=== PATIENT | male | born 1945 | race Caucasian/White ===

== ENCOUNTER 2017-05-28 18:12 | Inpatient (IN) | payer OTHER ==
[2017-05-28 18:30] VITALS: BMI 20.8
[2017-05-31 13:14] VITALS: BP 138/76; PULSE 68; TEMP 97.9
== END 2017-05-31 12:11 | disposition home or self-care (01) | DRG 554 ==
LOC: JER 18:12 → JERFT 18:12 → JERBED 21:05 → J5S 23:50
PROVIDERS: ADMIT Internal Medicine; ATTEND Internal Medicine
DX: M10.9 Gout, unspecified (principal); M00.9 Pyogenic arthritis, unspecified; E11.9 Type 2 diabetes mellitus without complications; M1A.9XX1 Chronic gout, unspecified, with tophus (tophi); I10 Essential (primary) hypertension
CPT/HCPCS: 36415; 73140-TC-LT-FY; 80053; 82962; 83605; 84550; 85025; 85651; 86140; 87040; 99283-25; J1644

== ENCOUNTER 2017-08-27 12:59 | Emergency (ER) | payer OTHER ==
[2017-08-27 13:22] VITALS: BP 109/62; PULSE 70; TEMP 98.7; BMI 28.6
[2017-08-27] MEDS ORDERED: KETOROLAC TROMETHAMINE 30 MG/1 ML VIAL IM ONE (13:47)
--- NOTE | 2017-08-27 13:50 | PDOC ---
History of Present Illness - General Chief Complaint: Pain Stated Complaint: SWOLLEN LEGS Time Seen by Provider: 08/27/17 13:33 History Source: Patient Exam Limitations: No Limitations - History of Present Illness Initial Comments: 08/27/17 13:46 71 yr male with c/o bilateral foot pain, left foot great toe, right foot second and third toe pain pt also with left hip and upper thigh pain for 2 weeks. no fever no trauma no SOB . pt states he has history of gout, arthritis, HTN. 08/27/17 13:47 Severity: moderate Past History - Past Medical History Allergies/Adverse Reactions: Allergies Allergy/AdvReac Type Severity Reaction Status Date / Time No Known Allergies Allergy Verified 08/27/17 13:18 Home Medications: Ambulatory Orders Amlodipine/Atorvastatin [Amlodipine-Atorvast 5-20 mg] 1 each PO ASDIR 05/28/17 Aspirin [ASA -] 81 mg PO DAILY 05/28/17 Colchicine 0.6 mg PO Q1H #5 capsule 08/27/17 Indomethacin [Indocin -] 50 mg PO BID #14 capsule 08/27/17 Anemia: No Asthma: No Cancer: No Cardiac Disorders: No CVA: No COPD: No CHF: No Dementia: No Diabetes: No GI Disorders: No Disorders: No HTN: Yes Hypercholesterolemia: No Liver Disease: No Seizures: No Thyroid Disease: No Other medical history: GOUT, arthritis - Surgical History Abdominal Surgery: No Appendectomy: No Cardiac Surgery: No Cholecystectomy: No Lung Surgery: No Neurologic Surgery: No Orthopedic Surgery: No - Suicide/Smoking/Psychosocial Hx Smoking Status: No Smoking History: Never smoked Have you smoked in the past 12 months: No Number of Cigarettes Smoked Daily: 0 Hx Alcohol Use: No Drug/Substance Use Hx: No Substance Use Type: None Hx Substance Use Treatment: No Review of Systems - Review of Systems Able to Perform ROS?: Yes Is the patient limited Slovenian proficient: No Constitutional: No: Symptoms Reported HEENTM: No: Symptoms Reported Respiratory: No: Symptoms reported Cardiac (ROS): No: Symptoms Reported ABD/GI: No: Symptoms Reported : No: Symptoms Reported Musculoskeletal: Yes: Symptoms Reported Integumentary: Yes: Symptoms Reported Neurological: No: Symptoms reported *Physical Exam - Vital Signs Last Vital Signs Temp Pulse Resp BP Pulse Ox 98.7 F 70 19 109/62 98 08/27/17 13:18 08/27/17 13:18 08/27/17 13:18 08/27/17 13:18 08/27/17 13:18 - Physical Exam General Appearance: Yes: Nourished, Appropriately Dressed HEENT: positive: EOMI, DA Neck: positive: Supple Respiratory/Chest: positive: Lungs Clear, Normal Breath Sounds Cardiovascular: positive: Regular Rhythm, Regular Rate Integumentary: positive: Normal Color, Dry, Warm, Other (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 left thigh no deformity no hip tenderness to palp, FROM fo the hip joint and leg , left foot with ttp to the bunion no redness or warmth nv intact) Neurologic: positive: Fully Oriented, Alert, Normal Mood/Affect, Normal Response , Motor Strength 06/19 ED Treatment Course - LABORATORY CBC & Chemistry Diagram: 08/27/17 13:55 08/27/17 13:55 - Consult/PCP Time Called: 17:14 Consult Reason/Comments: left message with office to have call regarding lab results. Medical Decision Making - Medical Decision Making 08/27/17 14:54 cc: hip pain , bilateral foot pain for 2 weeks no fever no abd pain no back pain pt has history of gout will give toradol now xrays, blood work pt has allopurinol at home 08/27/17 14:56 08/27/17 17:14 called pt he is aware of the elevated ESR I have also called colchicine to his pharmacy he will waste picker and start taking pt understands he must follow with PMD Wednesday or return if any worsenign symptoms, fever, chills increased pain or swelling *DC/Admit/Observation/Transfer Diagnosis at time of Disposition: Gout, chronic, with tophus Qualifiers: Gout site: foot Gout etiology: other secondary cause Laterality: right Qualified Code(s): M1A.4711 - Other secondary chronic gout, right ankle and foot , with tophus (tophi) Leg pain Qualifiers: Laterality: left Qualified Code(s): M79.605 - Pain in left leg - Discharge Dispostion Disposition: HOME Condition at time of disposition: Good - Prescriptions Prescriptions: Colchicine 0.6 mg PO Q1H #5 capsule Indomethacin [Indocin -] 50 mg PO BID #14 capsule - Referrals Referrals: Kerwin Gonzalez MD [Primary Care Provider] - - Patient Instructions Additional Instructions: follow with your doctor on WEDNESDAY take indocin as directed for pain return to ER for any worsening symptoms drink at least 1 liter of water a day - Post Discharge Activity Forms/Work/School Notes: Back to Work
[2017-08-27] MEDS ORDERED: KETOROLAC TROMETHAMINE 30 MG/1 ML VIAL ONE (14:01)
[2017-08-27 14:08] LABS: BASO % 0.3 % (0-2.0); EOS % 1.5 % (0-4.5); HEMATOCRIT 39.4 % (35.4-49); HEMOGLOBIN 12.8 GM/dL (11.7-16.9); LYMPH % 21.2 % (8-40); MCH 29.2 pg (25.7-33.7); MCHC 32.5 g/dl (32.0-35.9); MEAN CELL VOLUME 90.1 fl (80-96); MEAN PLT VOLUME 8.4 fl (7.5-11.1); MONO % 7.2 % (3.8-10.2); NEUT % 69.8 % (42.8-82.8); PLATELET COUNT 186 K/MM3 (134-434); RBC 4.38 M/mm3 (4.00-5.60); WHITE BLOOD COUNT 13.5 K/mm3 (4.0-10.0)
[2017-08-27 14:46] LABS: ALBUMIN 3.8 g/dl (3.4-5.0); ALK PHOS 104 U/L (45-117); ANION GAP 7 (8-16); BILIRUBIN,TOTAL 0.2 mg/dL (0.2-1.0); BLOOD UREA NITROGEN 18 mg/dL (7-18); CALCIUM 9.2 mg/dL (8.5-10.1); CHLORIDE 104 mmol/L (98-107); CO2 27 mmol/L (21-32); CREATININE 1.7 mg/dL (0.7-1.3); GLUCOSE,RANDOM 105 mg/dL (74-106); POTASSIUM 4.4 mmol/L (3.5-5.1); SGOT/AST 30 U/L (15-37); SGPT/ALT 44 U/L (12-78); SODIUM 138 mmol/L (136-145); TOT PROT 8.4 g/dl (6.4-8.2)
== END 2017-08-27 15:40 | disposition home or self-care (01) ==
LOC: JERFT 12:59
PROC: 3E0233Z Introduction of Anti-inflammatory into Muscle, Percutaneous Approach (ICD-10-PCS; principal; 2017-08-27)
DX: M1A.4 Other secondary chronic gout (principal); M79.605 Pain in left leg; I10 Essential (primary) hypertension
CPT/HCPCS: 36415; 73523-TC-FY; 73630-TC-LT; 73630-TC-RT-FY; 80053; 84550; 85025; 85651; 96372; 99281-25

== ENCOUNTER 2023-12-03 18:01 | Observation (INO) | payer OTHER ==
[2023-12-03 18:21] VITALS: BMI 26.3
[2023-12-03] MEDS ORDERED: COLCHICINE 0.6 MG TAB ONE ×2 (20:51→22:20)
[2023-12-03] MEDS: COLCHICINE 0.6 MG TAB PO ONE ×2 (20:59→22:25)
[2023-12-03 21:01] LABS: BASO % 0.5 % (0-2.0); HEMATOCRIT 39.5 % (35.4-49); HEMOGLOBIN 13.3 GM/dL (11.7-16.9); LYMPH % 24.9 % (8-40); MCH 29.2 pg (25.7-33.7); MCHC 33.6 g/dl (32.0-35.9); MEAN CELL VOLUME 87.1 fl (80-96); MONO % 8.6 % (3.8-10.2); PLATELET COUNT 108 10^3/uL (134-434); RBC 4.53 M/mm3 (4.00-5.60); RDW 17.4 % (11.9-15.9); WHITE BLOOD COUNT 9.3 K/mm3 (4.0-10.0)
[2023-12-03] MEDS ORDERED: IBUPROFEN 400 MG TABLET (FP) PO ONE (21:14)
[2023-12-03] MEDS: IBUPROFEN 400 MG TABLET (FP) PO ONE (21:18)
[2023-12-03 21:19] LABS: POTASSIUM 4.4 mmol/L (3.5-5.1)
[2023-12-03 21:22] LABS: ALBUMIN 3.5 g/dl (3.4-5.0); BLOOD UREA NITROGEN 20.3 mg/dL (7-18); CALCIUM 8.9 mg/dL (8.5-10.1)
[2023-12-03 21:25] LABS: CREATININE 1.8 mg/dL (0.55-1.3)
[2023-12-03 21:27] LABS: BILIRUBIN,TOTAL 0.2 mg/dL (0.2-1); TOT PROT 8.4 g/dl (6.4-8.2)
[2023-12-04] MEDS: SODIUM CHLORIDE 1,000 ML IV STA (03:09)
[2023-12-04] MEDS ORDERED: POLYETHYLENE GLYCOL (HEALTHYLAX) 3350 17 GM PACKET ONE ×2 (03:09→10:52)
[2023-12-04] MEDS: POLYETHYLENE GLYCOL (HEALTHYLAX) 3350 17 GM PACKET PO ONE (03:09)
[2023-12-04] MEDS: SODIUM CHLORIDE 1,000 ML IV SCH ×2 (03:09→13:09)
[2023-12-04] MEDS ORDERED: ACETAMINOPHEN 1000 MG/100 ML BAG IVPB PRN (03:13)
[2023-12-04] MEDS ORDERED: ACETAMINOPHEN 500 MG TABLET (FP) PO PRN (03:14)
[2023-12-04] MEDS ORDERED: HEPARIN NA (PORCINE) 5,000 UNITS/ML 1ML VIAL ONE (07:02)
[2023-12-04 07:39] LABS: HEMATOCRIT 35.9 % (35.4-49); HEMOGLOBIN 11.7 GM/dL (11.7-16.9); MCH 28.8 pg (25.7-33.7); MCHC 32.6 g/dl (32.0-35.9); MEAN CELL VOLUME 88.3 fl (80-96); MEAN PLT VOLUME 8.4 fl (7.5-11.1); PLATELET COUNT 90 10^3/uL (134-434); RBC 4.06 M/mm3 (4.00-5.60); RDW 16.7 % (11.9-15.9); WHITE BLOOD COUNT 7.6 K/mm3 (4.0-10.0)
[2023-12-04] MEDS: HEPARIN NA (PORCINE) 5,000 UNITS/ML 1ML VIAL SQ SCH (07:50)
[2023-12-04 08:21] LABS: POTASSIUM 4.2 mmol/L (3.5-5.1)
[2023-12-04 08:50] LABS: BLOOD UREA NITROGEN 21.5 mg/dL (7-18); CALCIUM 8.4 mg/dL (8.5-10.1); MAGNESIUM 1.6 mg/dL (1.8-2.4)
[2023-12-04 08:53] LABS: CREATININE 1.7 mg/dL (0.55-1.3); PHOSPHOROUS 2.7 mg/dL (2.5-4.9)
[2023-12-04 08:54] LABS: BILIRUBIN,TOTAL 0.3 mg/dL (0.2-1); TOT PROT 6.9 g/dl (6.4-8.2); URIC ACID 7.6 mg/dL (2.6-7.2)
[2023-12-04 09:17] LABS: EPI CELLS 2 /uL (0-25.1); HYALINE CASTS 0 /uL (0-3.1); PH,URINE 5.5 (5.0-8.0); URINE APPEARANCE CLEAR; URINE BACTERIA 6 /uL (0-1359); URINE BILIRUBIN NEGATIVE (NEGATIVE); URINE COLOR YELLOW; URINE GLUCOSE (UA) NEGATIVE (NEGATIVE); URINE KETONE NEGATIVE (NEGATIVE); URINE LEUK ESTERASE NEGATIVE (NEGATIVE); URINE NITRITE NEGATIVE (NEGATIVE); URINE PROTEIN 2+ (NEGATIVE); URINE RBC 5 /uL (0-23.9); URINE UROBILINOGEN 0.2 mg/dL (0.2-1.0); URINE WBC 7 /uL (0-25.8)
[2023-12-04] MEDS ORDERED: predniSONE 20 MG TABLET (UD) ONE (10:52)
[2023-12-04] MEDS ORDERED: COLCHICINE 0.6 MG TAB ONE (10:53)
[2023-12-04] MEDS: predniSONE 20 MG TABLET (UD) PO SCH (11:00)
[2023-12-04] MEDS: POLYETHYLENE GLYCOL (HEALTHYLAX) 3350 17 GM PACKET PO SCH (11:00)
[2023-12-04] MEDS: COLCHICINE 0.6 MG TAB PO SCH (11:00)
[2023-12-04] MEDS ORDERED: COLCHICINE 0.6 MG PO SCH (12:00)
[2023-12-04] MEDS: amLODIPine BESYLATE 5 MG TABLET (FP) PO SCH (13:09)
[2023-12-04] MEDS: amLODIPine BESYLATE 5 MG TABLET (FP) PO ONE (18:42)
[2023-12-05 08:50] LABS: HEMATOCRIT 37.7 % (35.4-49); HEMOGLOBIN 12.3 GM/dL (11.7-16.9); MCH 28.7 pg (25.7-33.7); MCHC 32.5 g/dl (32.0-35.9); MEAN CELL VOLUME 88.2 fl (80-96); MEAN PLT VOLUME 8.2 fl (7.5-11.1); PLATELET COUNT 97 10^3/uL (134-434); RBC 4.27 M/mm3 (4.00-5.60); RDW 17.2 % (11.9-15.9); WHITE BLOOD COUNT 9.9 K/mm3 (4.0-10.0)
[2023-12-05 09:06] LABS: POTASSIUM 5.2 mmol/L (3.5-5.1)
[2023-12-05 09:13] LABS: CALCIUM 8.7 mg/dL (8.5-10.1)
[2023-12-05 09:14] LABS: ALBUMIN 3.1 g/dl (3.4-5.0); BLOOD UREA NITROGEN 23.6 mg/dL (7-18); MAGNESIUM 1.6 mg/dL (1.8-2.4)
[2023-12-05 09:17] LABS: CREATININE 1.7 mg/dL (0.55-1.3)
[2023-12-05 09:18] LABS: BILIRUBIN,TOTAL 0.4 mg/dL (0.2-1)
[2023-12-05 09:19] LABS: TOT PROT 7.4 g/dl (6.4-8.2)
[2023-12-05] MEDS: amLODIPine BESYLATE 10 MG TABLET (FP) PO SCH (11:08)
[2023-12-05] MEDS: SODIUM POLYSTYRENE SULFONATE 15 GM/60 ML BOTTLE PO ONE (11:12)
[2023-12-05 14:47] VITALS: BP 159/66; PULSE 59; RESP 18; TEMP 97.5
== END 2023-12-05 15:01 | disposition home or self-care (01) ==
LOC: JER 18:01 → JERBED 12-04 01:28 → J8W 12-04 11:24
PROVIDERS: ADMIT Internal Medicine; ATTEND Internal Medicine
PROC: 3E023GC Introduction of Other Therapeutic Substance into Muscle, Percutaneous Approach (ICD-10-PCS; principal; 2023-12-04)
PROC: 3E0337Z Introduction of Electrolytic and Water Balance Substance into Peripheral Vein, Percutaneous Approach (ICD-10-PCS; 2023-12-04)
DX: N17.9 Acute kidney failure, unspecified (principal); M1A.9XX1 Chronic gout, unspecified, with tophus (tophi); M00.9 Pyogenic arthritis, unspecified; E11.9 Type 2 diabetes mellitus without complications; I10 Essential (primary) hypertension
CPT/HCPCS: 36415; 76775-TC; 80053; 81003; 82340; 82550; 82570; 82962; 83036; 83735; 84100; 84156; 84550; 85025; 85027; 86038; 86160; 87086; 96360; 96361; 96372; 99285-25; G0378; J1644

== ENCOUNTER 2024-04-12 18:07 | Emergency (ER) | payer SELFPAY ==
[2024-04-12 18:24] VITALS: TEMP 97.5; BMI 25.8
[2024-04-12] MEDS ORDERED: ACETAMINOPHEN INJECTION 100 ML ONE (18:54)
[2024-04-12] MEDS ORDERED: ONDANSETRON 4 MG/2 ML VIAL ONE (18:54)
[2024-04-12] MEDS: ACETAMINOPHEN 1000 MG/100 ML BAG IVPB ONE (19:04)
[2024-04-12] MEDS: ONDANSETRON 4 MG/2 ML VIAL IVPB ONE (19:04)
[2024-04-12 19:18] LABS: BASO % 0.3 % (0-2.0); HEMOGLOBIN 13.6 GM/dL (11.7-16.9); MCH 29.3 pg (25.7-33.7); MCHC 32.4 g/dl (32.0-35.9); MEAN CELL VOLUME 90.6 fl (80-96); MEAN PLT VOLUME 8.6 fl (7.5-11.1); MONO % 6.8 % (3.8-10.2); NEUT % 78.9 % (42.8-82.8); PLATELET COUNT 129 10^3/uL (134-434); RBC 4.63 M/mm3 (4.00-5.60); RDW 15.9 % (11.9-15.9)
[2024-04-12 19:26] LABS: INR 1.05 (0.83-1.09); PROTHROMBIN TIME (PATIENT) 11.5 SEC (9.7-13.0)
[2024-04-12 19:28] LABS: ACTIVATED PTT 31.4 SECONDS (25.2-36.5)
[2024-04-12 19:48] LABS: POTASSIUM 4.3 mmol/L (3.5-5.1)
[2024-04-12 19:50] LABS: ALBUMIN 3.7 g/dl (3.4-5.0); BLOOD UREA NITROGEN 16.3 mg/dL (7-18); CALCIUM 9.4 mg/dL (8.5-10.1)
[2024-04-12 19:53] LABS: CREATININE 1.8 mg/dL (0.55-1.3)
[2024-04-12 19:55] LABS: BILIRUBIN,TOTAL 0.3 mg/dL (0.2-1); TOT PROT 8.8 g/dl (6.4-8.2)
[2024-04-12 20:02] VITALS: BP 161/66; PULSE 64; RESP 18
[2024-04-12] MEDS ORDERED: MAG HYDROX/AL HYDROX/SIMETH 30 ML UNIT-DOSE CUP ONE (20:22)
[2024-04-12] MEDS: MAG HYDROX/AL HYDROX/SIMETH -MYLANTA- ORAL SUSPENSION PO ONE (20:24)
== END 2024-04-13 01:18 | disposition home or self-care (01) ==
LOC: JER 18:07
PROC: 3E033NZ Introduction of Analgesics, Hypnotics, Sedatives into Peripheral Vein, Percutaneous Approach (ICD-10-PCS; principal; 2024-04-12)
PROC: 3E033GC Introduction of Other Therapeutic Substance into Peripheral Vein, Percutaneous Approach (ICD-10-PCS; 2024-04-12)
DX: R07.9 Chest pain, unspecified (principal); R10.13 Epigastric pain
CPT/HCPCS: 36415; 71045-TC-FY; 71275-TC; 74174-TC; 80053; 83605; 83690; 84484; 85025; 85610; 85730; 86850; 86900; 86901; 93005; 93010; 99285-25; J0131